=== PATIENT | female | born 1975 | race Caucasian/White ===

== ENCOUNTER 2024-12-09 12:27 | Emergency (ER) | payer OTHER, SELFPAY ==
[2024-12-09 12:29] VITALS: BP 158/95
[2024-12-09 14:09] LABS: % Basophils 0.2 % (0-2); % Eosinophils 2.3 % (0-6); % Immature Granulocytes 0.5 % (0-0.5); % Lymphocytes 10.6 % (20.5-51.1); % Monocytes 4.8 % (1.7-9.3); % Neutrophils 81.6 % (42.2-75.2); Absolute Eosinophils 0.2 10^3/uL (0-0.7); Absolute Lymphocytes 0.9 10^3/uL (1.2-3.4); Absolute Monocytes 0.4 10^3/uL (0.1-0.6); Absolute Neutrophils 7.1 10^3/uL (1.4-6.5); Mean Corp Hgb Conc. 31.4 g/dL (33.0-37.0); Mean Corpuscular Hgb 26.1 pg (27.0-31.0); Mean Corpuscular Volume 82.9 fL (81.0-99.0); Mean Platelet Volume 11.9 fL (7.4-10.4); Nucleated Red Blood Cells % 0 %; Platelet Count 188 10^3/uL (130-400); Red Blood Cell Count 4.22 10^6/uL (4.20-5.40); Urine Albumin 3+ (Neg - Trace); Urine Bilirubin Negative (Negative); Urine Character Cloudy (Clear); Urine Color Yellow; Urine Glucose Negative (Negative); Urine Ketone Negative (Negative); Urine Leukocyte 3+ (Negative); Urine Nitrite Positive (Negative); Urine Occult Blood 4+ (Negative); Urine Urobilinogen Negative (Neg - 1+); White Blood Cell Count 8.7 10^3/uL (4.8-10.8)
--- NOTE | 2024-12-09 14:17 | ED.GENMED ---
Addendum entered and electronically signed by Surya Mckeon PA-C 12/12/24 08:02:
Addendum 12/12/2024 0801:
Culture positive for Klebsiella. Susceptible to cefpodoxime. Patient contacted and made aware. Recommend finishing the antibiotic and urology follow-up. All questions answered
Original Note:
History of Present Illness
General
Chief Complaint: Catheter/Tube Problem
Source: patient
Time Seen by Provider: 12/09/24 13:59
History of Present Illness
History of Present Illness:
49-year-old female with past medical history of previous kidney stones status post left ureteral stent placement in March and left-sided nephrostomy placed in July presenting to the ER for evaluation of reported fever last night with Tmax
just under 101 Fahrenheit, urinary frequency, chills and nausea. Patient has been dealing with frequent urinary tract infections, completed antibiotics last month. Patient states her main urologist is Dr. [place] Sheth at [facility] where
she has been getting cared for for the last year or so. That she is upset with some of her care and ultimately would like to change urologist which is why she came to this facility today. She has no other symptoms including URI-like symptoms,
bowel changes, chest pain or shortness of breath.
Past History
Past History
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
ED Past Surgical History: Gynecological
Social History
Tobacco: Smoker
Alcohol: None
Drug: None
Personal:
Living: with family
Family History
Family History: Other (Mother with schizophrenia and diabetes, father with lung cancer)
Review of Systems
Review of Systems
All Other Systems: ROS reviewed and negative except as documented in HPI and ROS
Phy Exam
Physical Exam
Physical Exam:
GENERAL: Alert , in no apparent distress
EYE: conjunctiva clear
NECK: Supple
ENT: o/p clr, mmm.
CARDIAC: Borderline tachycardic rate, normal rhythm
LUNGS: Clear breath sounds bilaterally, no acute respiratory distress, no wheezes/rales/rhonchi
NEUROLOGICAL: Alert and oriented
SKIN: Warm and dry, skin intact. Nephrostomy in place within the left flank, there is very slight erythema at the insertion site but no drainage
MUSCULOSKELETAL: well perfused.
PSYCH: Normal and appropriate interaction.
Scores
Heart Failure Risk
Heart Failure Risk Score: Not Applicable
Heart Score for Chest Pain Patients
STEMI patient?: Not applicable
Withdrawal Assessment of Alcohol
Withdrawal Assessment Completed?: Not applicable
Course
Orders/Labs/Results
Orders:
Orders
12/09/24 14:01
Basic Metabolic Panel Urgent
Complete Blood Count/With Diff Urgent
Urinalysis Reflex To Culture Urgent
Date Specimen was Collected: 12/09/24
Time Specimen was Collected: 14:00
Comment: from nephrostomy
Urine Microscopic Reflex Cult Urgent
Urine Culture Urgent
RENZO Source: U
Specimen Description:
Date Specimen was Collected: 12/09/24
Time Specimen was Collected: 14:00
Abnormal Lab Results
12/09/24
14:01
Hgb 11.0 L g/dL
(12.0-16.0)
Hct 35.0 L %
(37.0-47.0)
MCH 26.1 L pg
(27.0-31.0)
MCHC 31.4 L g/dL
(33.0-37.0)
RDW 15.0 H %
(11.5-14.5)
MPV 11.9 H fL
(7.4-10.4)
Absolute Neuts (auto) 7.1 H 10^3/uL
(1.4-6.5)
Absolute Lymphs (auto) 0.9 L 10^3/uL
(1.2-3.4)
Neutrophils % 81.6 H %
(42.2-75.2)
Lymphocytes % 10.6 L %
(20.5-51.1)
BUN 26 H mg/dl
(7-17)
Creatinine 1.6 H mg/dL
(0.6-1.0)
Glucose 155 H mg/dl
(70-99)
Ur Occult Blood Reflex 4+ A
(Negative)
Urine Nitrite (Reflex) Positive A
(Negative)
Leukocyte Esterase Rfl 3+ A
(Negative)
Urine RBC 30-40 A /HPF
(0-2)
Urine WBC (Reflex) 90-100 A /HPF
(0-5)
Urine Bacteria (Reflex) Many A
(Negative)
Urine Albumin (Reflex) 3+ A
(Neg - Trace)
12/09/24 14:01
12/09/24 14:01
Vital Signs
Initial and Last Documented VS:
Initial Vital Signs
Temp Pulse Resp BP Pulse Ox
98.7 F 115 16 158/95 97
12/09/24 12:29 12/09/24 12:29 12/09/24 12:29 12/09/24 12:29 12/09/24 12:29
Last Documented Vital Signs
Temp Pulse Resp BP Pulse Ox
98.7 F 100 18 162/89 98
12/09/24 12:29 12/09/24 16:38 12/09/24 16:38 12/09/24 16:38 12/09/24 16:38
MDM/Problems Addressed
Differential Diagnosis Includes:
Cystitis, pyelonephritis, urosepsis, renal/ureteral colic
MDM/Problems Addressed:
49-year-old female presenting to the ER for evaluation of reported fever with Tmax last night of 101, urinary frequency, nausea with symptoms similar to previous urinary tract infections. She has noted multiple complications since her ureteral
stent and nephrostomy were placed. Patient states her ureteral stent remains in place, has requested urology remove both ureteral stent and nephrostomy but patient stating that her urologist has been reluctant to do so. Patient has a known 2.4 cm
stone within the left kidney and reports that she cannot get lithotripsy for another 9 months but unclear as to why. Call was placed to patient's urology office to obtain further information as no information on record here. Labs and urine
ordered. Disposition pending
Chronic conditions affecting care: Other (Kidney stones)
*Pulse Oximetry
Patient hypoxic: no
*Critical Care Note
Total Time (30-74mins, 75-104mins- exclusive of procedures): Not Applicable
Patient Management
Social determinants of health affecting care: Living situation and Other (Already arranged outpatient follow-up)
Discussion with other providers: [employer]
Escalation/DeEscalation of care consider admission/obs:
I spoke with patient's urologist, Dr. Sheth, and we reviewed patient's outpatient tests noting that her baseline creatinine is 1.5-1.6. We reviewed previous urine cultures and he is okay with patient being discharged on either Augmentin or
cefpodoxime. Patient has an appointment scheduled for December 21 at 9:30 AM at their [place] office and patient can follow-up then. He agrees that patient does not need any imaging at this time. Based off of patient's next visit she will likely
need to go for another round of lithotripsy versus ureteroscopy. Patient was updated on this treatment plan as well as reminder of her appointment with the office. Aware of return precautions to the ER but otherwise stable for discharge home.
ED Attending Note
-
Portions of this chart may have been created with voice recognition software.� Occasional wrong word or��sound alike� substitutions may have occurred due to the inherent limitations of voice recognition software.
Discharge Plan
Departure
Patient Disposition: Home (Routine Discharge)
Date of Disposition: 12/09/24
Time of Disposition: 16:30
Patient with high blood pressure during this ER visit?: Yes
Discharge Problem:
Urinary tract infection
Instructions: Urinary tract infections in adults
Prescriptions:
New
cefpodoxime 200 mg tablet
200 mg PO BID 14 Days Qty: 28 0RF
No Action
phenytoin sodium extended [Dilantin Extended] 100 MG capsule
100 mg PO TID
dicyclomine [Bentyl] 20 MG tablet
20 mg PO QID PRN (Reason: crampimg)
ondansetron HCl [Zofran] 4 MG tablet
4 mg PO TIDPRN Qty: 15 0RF
Referrals:
Jim Muñiz DO [Family Provider, Family Practice]
Activity Restrictions/Additional Instructions:
You have an appointment scheduled with your urologist, Dr. [place] Sheth, on December 21 at 9:30 AM at their [place] office. Please contact them to confirm the appointment.
Interventions
Interventions:
*Risk Screen - Suicide Last Done: 12/09/24 12:29
*Neglect/Abuse Screening Last Done: 12/09/24 12:29
*ED- Fall Risk Assessment Last Done: 12/09/24 14:14
*ED COVID-19 Vaccine History Last Done: 12/09/24 14:14
*Nursing Disposition Last Done: 12/09/24 16:38
IM-Qcoxup-Ywqxlzciom Assessment Last Done: 12/09/24 14:14
ED-Female Genitourinary Assessment Last Done: 12/09/24 14:14
Discharge Date and Time
Discharge Date/Time: 12/09/24 16:39
Print Language: SUDANESE
[2024-12-09 14:28] VITALS: BP 151/84
[2024-12-09 14:35] LABS: Urine Bacteria Many (Negative); Urine White Cell 90-100 /HPF (0-5)
[2024-12-09 14:37] LABS: Urine Red Blood Cell 30-40 /HPF (0-2)
[2024-12-09 14:58] LABS: Blood Urea Nitrogen 26 mg/dl (7-17); Glucose 155 mg/dl (70-99)
[2024-12-09 14:59] LABS: Calcium 9.6 mg/dl (8.4-10.2); Carbon Dioxide 25 mmol/L (22-30); Chloride 107 mmol/L (98-107); Sodium 141 mmol/L (135-145); eGFR 39.05
[2024-12-09 16:38] VITALS: BP 162/89
== END 2024-12-09 16:39 | disposition home or self-care (01) ==
LOC: EMR 12:27
PROVIDERS: Physician Assistant Medical; EMERGENCY PHYSICIAN Emergency Medicine; FAMILY PHYSICIAN Family Medicine
DX: N39.0 Urinary tract infection, site not specified (principal); N20.0 Calculus of kidney; F17.200 Nicotine dependence, unspecified, uncomplicated
CPT/HCPCS: 99283; 80048; 81003; 81015; 85025; 87077; 87086; 87186